=== PATIENT | female | born 1950 | race Two or more races ===

== ENCOUNTER 2019-03-08 20:06 | Emergency (ER) | payer MEDICARE, OTHER ==
[~2019-03-08] VITALS: Ht 162.6 cm; Wt 59.5 kg
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
--- NOTE | 2019-03-08 21:12 | NUR ---
All results back pt up for recheck.
[2019-03-08 21:31] VITALS: BP 135/75
== END 2019-03-08 21:34 | disposition home or self-care (01) ==
LOC: ED 21:28
DX: S20.212A Contusion of left front wall of thorax, initial encounter (principal); I10 Essential (primary) hypertension; E11.9 Type 2 diabetes mellitus without complications; E78.5 Hyperlipidemia, unspecified; V89.2XXA Person injured in unspecified motor-vehicle accident, traffic, initial encounter; Y93.89 Activity, other specified; Y92.410 Unspecified street and highway as the place of occurrence of the external cause; Y99.8 Other external cause status
CPT/HCPCS: 71046; 93005; 99283